=== PATIENT | female | born 1990 | race African-American/Black ===

== ENCOUNTER 2017-02-28 16:22 | Emergency (ER) | payer SELFPAY ==
[~2017-02-28] VITALS: Ht 160 cm; Wt 81.6 kg
[2017-02-28 16:43] VITALS: BP 133/86
[2017-02-28] MEDS ORDERED: AMOX875T PO (16:45)
[2017-02-28] MEDS ORDERED: FLUC150T PO (16:45)
--- NOTE | 2017-02-28 16:45 | PHYS DOC ---
Past Medical History Past Medical History: No Pertinent History Past Surgical History: No Surgical History Alcohol Use: None Drug Use: None Adult General Chief Complaint Chief Complaint: LOWER EXT PAIN HPI HPI Patient is a 26 year old female presents to the emergency department with complaints of a pustular rash on the lower extremities. She states it's been present for one week. She also states that she has itching in her genital area, "in the bikini line". She denies vaginal discharge, pelvic pain. She denies urinary symptoms. She has abdominal pain. Some fever. Review of Systems Review of Systems Constitutional: Denies fever or chills [] Eyes: Denies change in visual acuity, redness, or eye pain [] HENT: Denies nasal congestion or sore throat [] Respiratory: Denies cough or shortness of breath [] Cardiovascular: No additional information not addressed in HPI [] GI: Denies abdominal pain, nausea, vomiting, bloody stools or diarrhea [] : Denies dysuria or hematuria, itching in bikini area[] Musculoskeletal: Denies back pain or joint pain [] Integument: pustular rash Neurologic: Denies headache, focal weakness or sensory changes [] Endocrine: Denies polyuria or polydipsia [] Allergies Allergies Allergies Coded Allergies Type Severity Reaction Last Updated Verified No Known Drug Allergies 05/27/14 No Physical Exam Physical Exam Constitutional: Well developed, well nourished, no acute distress, non-toxic appearance. [] HENT: Normocephalic, atraumatic, bilateral external ears normal, oropharynx moist, no oral exudates, nose normal. [] Eyes: PERRLA, EOMI, conjunctiva normal, no discharge. [] Neck: Normal range of motion, no tenderness, supple, no lymphadenopathy Cardiovascular:Heart rate regular rhythm, no murmur [] Lungs & Thorax: Bilateral breath sounds clear to auscultation [] Abdomen: Bowel sounds normal, soft, no tenderness, no masses, no pulsatile masses. [] Skin: Warm, dry, bilateral lower extremities, scant, diffuse pustular rash. There is no surrounding erythema. No induration. There is nontender. Patient with a tinea in the groin line, underwear line Back: No tenderness, no CVA tenderness. [] Extremities: No tenderness, no cyanosis, no clubbing, ROM intact, no edema. [] EKG EKG [] Radiology/Procedures Radiology/Procedures [] Course & Med Decision Making Course & Med Decision Making Pertinent Labs and Imaging studies reviewed. (See chart for details) [] Dragon Disclaimer Dragon Disclaimer This electronic medical record was generated, in whole or in part, using a voice recognition dictation system. Departure Departure Impression: Primary Impression: Folliculitis Additional Impression: Candidiasis of skin Disposition: HOME, SELF-CARE Condition: STABLE Referrals: NO PCP (PCP) [facility] Patient Instructions: Folliculitis, Yeast Infection of the Skin, [id number] Scripts Fluconazole (DIFLUCAN) 150 Mg Tablet 1 TAB PO DAILY, #5 TAB 1 Refill 1 tablet on days one, 3, 7, 14, 21 Prov: BEAR SANCHEZ APRN 02/28/17 Amoxicillin (AMOXICILLIN) 875 Mg Tablet 1 TAB PO BID, #14 TAB Prov: BEAR SANCHEZ APRN 02/28/17 Problem Qualifiers BEAR SANCHEZ APRN Feb 28, 2017 16:45
== END 2017-02-28 16:56 | disposition home or self-care (01) ==
LOC: ER 16:22
DX: L73.9 Follicular disorder, unspecified (principal); B37.2 Candidiasis of skin and nail; R10.9 Unspecified abdominal pain
CPT/HCPCS: 99283

== ENCOUNTER 2017-07-01 09:14 | Emergency (ER) | payer SELFPAY ==
[~2017-07-01] VITALS: Ht 160 cm; Wt 72.6 kg
[~2017-07-01 09:14] MED LIST: AMOX875T PO; FLUC150T PO
--- NOTE | 2017-07-01 09:36 | EKG ---
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
--- NOTE | 2017-07-01 09:41 | PHYS DOC ---
Past Medical History Past Medical History: No Pertinent History Past Surgical History: No Surgical History Alcohol Use: None Drug Use: None Adult General Chief Complaint Chief Complaint: MULTIPLE COMPLAINTS HPI HPI Patient is a 26 year old female who presents with lower abdominal pain for 2 weeks. Mild increase in urination, no dysuria, no vaginal discharge, no nausea or vomiting. "small period" last month but no period in mar or april. Intermittent R breast pain with movement, no known injury. + constipation, feels like she needs to have BM, no current PCP Review of Systems Review of Systems Constitutional: Denies fever or chills [] Eyes: Denies change in visual acuity, redness, or eye pain [] HENT: Denies nasal congestion or sore throat [] Respiratory: Denies cough or shortness of breath [] Cardiovascular: denies edema GI: Denies nausea, vomiting, bloody stools or diarrhea [] : Denies dysuria or hematuria [] Musculoskeletal: Denies back pain or joint pain [] Integument: Denies rash or skin lesions [] Neurologic: Denies headache, focal weakness or sensory changes [] Allergies Allergies Allergies Coded Allergies Type Severity Reaction Last Updated Verified No Known Drug Allergies 05/27/14 No Physical Exam Physical Exam Constitutional: Well developed, well nourished, no acute distress, non-toxic appearance. [] HENT: Normocephalic, atraumatic, bilateral external ears normal, oropharynx moist, no oral exudates, nose normal. [] Eyes: PERRLA, EOMI, conjunctiva normal, no discharge. [] Neck: Normal range of motion, no tenderness, supple, no stridor. [] Cardiovascular:Heart rate regular with regular rhythm, no murmur [] Lungs & Thorax: Bilateral breath sounds clear to auscultation [] Abdomen: Bowel sounds normal, soft, suprapubic ttp, no adnexal ttp, no guarding , no peritoneal signs. Skin: Warm, dry, no erythema, no rash. [] Back: No tenderness, no CVA tenderness. [] Extremities: No tenderness, no cyanosis, no clubbing, ROM intact, no edema. [] Neurologic: Alert and oriented X 3, normal motor function, normal sensory function, no focal deficits noted. [] Psychologic: Affect normal, judgement normal, mood normal. [] Current Patient Data Vital Signs Vital Signs Date Time Temp Pulse Resp B/P (MAP) Pulse Ox O2 Delivery O2 Flow Rate FiO2 07/01/17 10:34 62 111/69 (83) 98 Room Air 07/01/17 09:45 98.1 20 98.1 Lab Values Laboratory Tests Test 07/01/17 09:30 07/01/17 09:38 07/01/17 09:57 Urine Collection Type Unknown Urine Color Yellow Urine Clarity Clear Urine pH 6.0 Urine Specific [place] 1.020 Urine Protein Negative mg/dL (NEG-TRACE) Urine Glucose (UA) Negative mg/dL (NEG) Urine Ketones (Stick) Negative mg/dL (NEG) Urine Blood Negative (NEG) Urine Nitrite Negative (NEG) Urine Bilirubin Negative (NEG) Urine Urobilinogen Dipstick 0.2 mg/dL (0.2 mg/dL) Urine Leukocyte Esterase Trace (NEG) Urine RBC 0 /HPF (0-2) Urine WBC 1-4 /HPF (0-4) Urine Squamous Epithelial Cells Many /LPF Urine Bacteria Few /HPF (0-FEW) POC Urine HCG, Qualitative Hcg positive (Negative) Maternal Serum HCG Beta Subunit 4024 mIU/mL (0-5) H Microbiology 07/01/17 Wet Prep - Final, Complete EKG EKG [] Radiology/Procedures Radiology/Procedures US: Impression: 1. Intrauterine gestational sac identified without yolk sac or pole could be very early . Close interval follow-up examination and follow-up beta-hCG levels is recommended. [] Course & Med Decision Making Course & Med Decision Making Pertinent Labs and Imaging studies reviewed. (See chart for details) Pt had + UCG, quant in 4000s, US inconclusive if early or not going to develop. Stressed importance of f/u with OB in 2-3 days, referred to Dr. Gerber, pt dc'd with RX for keflex for possible uti. return precautions given. Dragon Disclaimer Dragon Disclaimer This electronic medical record was generated, in whole or in part, using a voice recognition dictation system. Departure Departure Impression: Primary Impression: Urinary tract infection Additional Impression: Disposition: 01 HOME, SELF-CARE Condition: STABLE Referrals: NO PCP (PCP) GUERA GERBER MD Patient Instructions: - Urinary Tract Infection Scripts Cephalexin (KEFLEX) 500 Mg Capsule 1 CAP PO BID, #14 CAP Prov: BIBI WARREN MD 07/01/17 Problem Qualifiers BIBI WARREN MD Jul 01, 2017 09:40
[2017-07-01 09:50] LABS: BILIRUBIN,URINE NEGATIVE (NEG); GLUCOSE,URINE NEGATIVE (NEG); NITRITE,URINE NEGATIVE (NEG); PROTEIN,URINE NEGATIVE (NEG-TRACE); UROBILINOGEN,URINE 0.2 mg/dL (0.2 mg/dL)
[2017-07-01 10:10] LABS: BACTERIA,URINE FEW /HPF (0-FEW); RBC,URINE 0 /HPF (0-2); SQUAMOUS EPITHELIAL CELL,UR MANY /LPF
--- NOTE | 2017-07-01 11:25 | RAD ---
Examination: Obstetric ultrasound first trimester History: History of abdominal pain Comparison: 04/23/2012 Findings: The uterus measures 8.5 x 5.5 x 4.1 cm. The cervical length measures 3.6 cm. The right ovary measures 2.9 x 1.9 x 3.4 cm. Blood flow identified in the right ovary. The left ovary measures 3.3 x 2.8 x1.7 cm. Blood flow identified in the left ovary. An intrauterine gestational sac is identified. A yolk sac and pole are not identified. The gestational sac measures 0.66 cm corresponding to 5 weeks and 3 days with estimated date of delivery by this ultrasound 02/28/2018. Simple appearing free fluid identified in the cul-de-sac. Impression: 1. Intrauterine gestational sac identified without yolk sac or pole could be very early . Close interval follow-up examination and follow-up beta-hCG levels is recommended.
[2017-07-01 11:34] VITALS: BP 111/58
[2017-07-01] MEDS ORDERED: CEPH-264 PO (12:02)
== END 2017-07-01 12:19 | disposition home or self-care (01) ==
LOC: ER 09:14
DX: N39.0 Urinary tract infection, site not specified (principal); Z33.1 Pregnant state, incidental; N64.4 Mastodynia
CPT/HCPCS: 36415; 76801; 76817; 81001; 81025; 84702; 87086; 87491; 87591; 93005; 99285; Q0111

== ENCOUNTER → 2017-08-06 | Outpatient (CLI) | payer OTHER ==
[2017-08-06 13:12] LABS: ADD MAN DIFF? NO
[2017-08-06 13:27] LABS: BASO % 0 % (0-3); EOS # 0.1 x10^3/uL (0.0-0.7); EOS % 1 % (0-3); HEMATOCRIT 32.3 % (36.0-47.0); HEMOGLOBIN 10.8 g/dL (12.0-15.5); LYMPH # 1.3 x10^3/uL (1.0-4.8); LYMPH % 31 % (24-48); MEAN CORPUSCULAR HEMOGLOBIN 28 pg (25-35); MEAN CORPUSCULAR HGB CONC 33 g/dL (31-37); MEAN CORPUSCULAR VOLUME 83 fL (79-100); MONO # 0.3 x10^3/uL (0.0-1.1); MONO % 8 % (0-9); NEUT # 2.5 x10^3uL (1.8-7.7); NEUT % 59 % (31-73); PLATELET COUNT 230 x10^3/uL (140-400); RED BLOOD COUNT 3.87 x10^6/uL (3.50-5.40); WHITE BLOOD COUNT 4.3 x10^3/uL (4.0-11.0)
[2017-08-06 13:50] LABS: BILIRUBIN,URINE NEGATIVE (NEG); CLARITY,URINE CLEAR; COLOR,URINE YELLOW; GLUCOSE,URINE NEGATIVE (NEG); NITRITE,URINE NEGATIVE (NEG); PH,URINE 6.5; PROTEIN,URINE NEGATIVE (NEG-TRACE); UROBILINOGEN,URINE 0.2 mg/dL (0.2 mg/dL)
[2017-08-06 14:29] LABS: RBC,URINE 0 /HPF (0-2)
[2017-08-06 14:30] LABS: BACTERIA,URINE FEW /HPF (0-FEW); SQUAMOUS EPITHELIAL CELL,UR MOD /LPF; WBC,URINE RARE /HPF (0-4)
[2017-08-06 23:11] LABS: HEP B SURFACE AG Negative (Negative); HIV ANTIBODY Non Reactive (Non Reactive)
[2017-08-07 09:20] LABS: RPR Non Reactive (Non Reactive)
[2017-08-08 00:15] LABS: RUBELLA IGG ANTIBODY 2.29 index (Immune >0.99)
== END | disposition home or self-care (01) ==
LOC: US 12:47
DX: O26.841 Uterine size-date discrepancy, first trimester (principal); Z3A.11 11 weeks gestation of pregnancy; R79.89 Other specified abnormal findings of blood chemistry
CPT/HCPCS: 36415; 76801; 81001; 84702; 85025; 86593; 86703; 86762; 86850; 86900; 86901; 87340

== ENCOUNTER → 2017-10-28 | Outpatient (CLI) | payer OTHER | END | disposition home or self-care (01) | LOC: US 09:19 | DX: Z34.92 Encounter for supervision of normal pregnancy, unspecified, second trimester (principal); Z3A.22 22 weeks gestation of pregnancy | CPT/HCPCS: 76805 ==

== ENCOUNTER 2018-01-19 13:51 | Observation (INO) | payer OTHER ==
[2018-01-19] MEDS ORDERED: IV RINGERS,LACTATED 1000ML 1,000 ML IV (14:28)
[2018-01-19] MEDS ORDERED: ACETAMINOPHEN 325 MG TABLET. PO (14:30)
[2018-01-19] MEDS: CYCLOBENZAPRINE 10 MG TABLET. PO (14:54)
== END 2018-01-19 15:04 | disposition home or self-care (01) ==
LOC: 3 SO LND 13:51
DX: O26.893 Other specified pregnancy related conditions, third trimester (principal); R10.2 Pelvic and perineal pain; M25.559 Pain in unspecified hip; M54.9 Dorsalgia, unspecified; Z3A.34 34 weeks gestation of pregnancy
CPT/HCPCS: G0378; G0379

== ENCOUNTER 2018-02-24 18:46 | Inpatient (IN) | payer OTHER ==
[2018-02-24] MEDS ORDERED: ACETAMINOPHEN 325 MG TABLET. PO (19:15)
[2018-02-24] MEDS ORDERED: fentaNYL PF VIAL 100 MCG/2 ML VIAL IV (19:30)
[2018-02-24] MEDS ORDERED: OXYTOCIN 30 UNIT/500 ML PREMIX 500 ML IV (19:30)
[2018-02-24] MEDS ORDERED: BUTORPHANOL 2 MG/ML VIAL. IV (19:30)
[2018-02-24] MEDS ORDERED: LIDOCAINE 1% PF 30 ML VIAL. INJ (19:30)
[2018-02-24] MEDS ORDERED: ONDANSETRON PF 4 MG/2 ML VIAL. IV (19:30)
[2018-02-24] MEDS ORDERED: 0.9 % SODIUM CHLORIDE 10 ML DISP.SYRIN. IV (19:30)
[2018-02-24] MEDS ORDERED: IV RINGERS,LACTATED 1000ML 1,000 ML IV (19:30)
[2018-02-24] MEDS ORDERED: TERBUTALINE 1 MG/ML VIAL. SQ (19:30)
[2018-02-24 19:49] LABS: BILIRUBIN,URINE NEGATIVE (NEG); CLARITY,URINE CLEAR; COLOR,URINE YELLOW; GLUCOSE,URINE NEGATIVE (NEG); NITRITE,URINE NEGATIVE (NEG); PH,URINE 6.5; PROTEIN,URINE NEGATIVE (NEG-TRACE); UROBILINOGEN,URINE 0.2 mg/dL (0.2 mg/dL)
[2018-02-24 19:55] LABS: BACTERIA,URINE MODERATE /HPF (0-FEW); RBC,URINE 0 /HPF (0-2); SQUAMOUS EPITHELIAL CELL,UR FEW /LPF; WBC,URINE OCC /HPF (0-4)
[2018-02-24 19:56] LABS: BARBITURATES NEG (NEG); BENZODIAZEPINES NEG (NEG); CANNABINOIDS NEG (NEG); COCAINE NEG (NEG); METHADONE NEG (NEG); OPIATES NEG (NEG); PHENCYCLIDINE NEG (NEG)
[2018-02-24 19:59] LABS: AMPHETAMINE/METHAMPHETAMINE NEG (NEG); ETHANOL, URINE NEG (NEG)
[2018-02-24 20:10] LABS: ADD MAN DIFF? NO
[2018-02-24 20:13] LABS: BASO % 1 % (0-3); EOS # 0.1 x10^3/uL (0.0-0.7); EOS % 1 % (0-3); HEMATOCRIT 32.5 % (36.0-47.0); LYMPH # 1.6 x10^3/uL (1.0-4.8); LYMPH % 31 % (24-48); MEAN CORPUSCULAR HEMOGLOBIN 29 pg (25-35); MEAN CORPUSCULAR HGB CONC 34 g/dL (31-37); MEAN CORPUSCULAR VOLUME 85 fL (79-100); MONO # 0.6 x10^3/uL (0.0-1.1); MONO % 12 % (0-9); NEUT # 2.8 x10^3uL (1.8-7.7); NEUT % 56 % (31-73); PLATELET COUNT 177 x10^3/uL (140-400); RED BLOOD COUNT 3.84 x10^6/uL (3.50-5.40); RED CELL DISTRIBUTION WIDTH 14.2 % (11.5-14.5)
[2018-02-24 20:31] LABS: ALBUMIN 2.6 g/dL (3.4-5.0); ALBUMIN/GLOBULIN RATIO 0.6 (1.0-1.7); ALK PHOS 108 U/L (46-116); ALT (SGPT) 15 U/L (14-59); ANION GAP 8 (6-14); AST (SGOT) 11 U/L (15-37); BLOOD UREA NITROGEN 10 mg/dL (7-20); BUN/CREATININE RATIO 14 (6-20); CALCIUM 8.7 mg/dL (8.5-10.1); CARBON DIOXIDE 24 mmol/L (21-32); CHLORIDE 104 mmol/L (98-107); CREATININE 0.7 mg/dL (0.6-1.0); DIRECT BILIRUBIN 0.1 mg/dL (0.0-0.2); GFR 120.6; GLUCOSE 91 mg/dL (70-99); LACTATE DEHYDROGENASE 157 U/L (81-234); POTASSIUM 3.7 mmol/L (3.5-5.1); SODIUM 136 mmol/L (136-145); TOTAL BILIRUBIN 0.4 mg/dL (0.2-1.0); URIC ACID 5.7 mg/dL (2.6-6.0)
[2018-02-24] MEDS: ACETAMINOPHEN 500 MG TABLET PO (20:49)
[2018-02-24] MEDS: DINOPROSTONE 10 MG SUPP.VAG VG (20:49)
[2018-02-24] MEDS: IV RINGERS,LACTATED 1000ML 1,000 ML IV (20:49)
[2018-02-24] MEDS ORDERED: OXYTOCIN PREMIX 30 UNIT/500 ML BAG. IV (21:00)
[2018-02-25] MEDS: MAG HYDROX/ALUMINUM HYD/SIMETH 30 ML ORAL.SUSP PO (01:57)
[2018-02-25] MEDS: IV RINGERS,LACTATED 1000ML 1,000 ML IV (04:00)
[2018-02-25] MEDS: BUTORPHANOL 2 MG/ML VIAL. IV ×2 (06:43→08:34)
[2018-02-25] MEDS: OXYTOCIN 30 UNIT/500 ML PREMIX 500 ML IV (07:23)
[2018-02-25] MEDS ORDERED: IV RINGERS,LACTATED 1000ML 1,000 ML IV (10:39)
[2018-02-25] MEDS ORDERED: NALOXONE 0.4 MG/ML VIAL. IV (10:45)
[2018-02-25] MEDS ORDERED: ONDANSETRON PF 4 MG/2 ML VIAL. IV (10:45)
[2018-02-25] MEDS ORDERED: ePHEDrine PF IN SALINE 50 MG/5 ML DISP.SYRIN IV (10:45)
[2018-02-25] MEDS ORDERED: fentaNYL PF VIAL 100 MCG/2 ML VIAL EPI (10:45)
[2018-02-25] MEDS ORDERED: ROPIVacaine 0.2% IN 0.9%NACL PF 40 MG/20 ML DISP.SYRIN. EPI (10:45)
[2018-02-25] MEDS ORDERED: MAG HYDROX/ALUMINUM HYD/SIMETH 30 ML ORAL.SUSP PO (11:15)
[2018-02-25] MEDS ORDERED: PHENYLEPH/MINERAL OIL/PETROLAT RECTAL OINTMENT 28GM TUBE. RC (11:15)
[2018-02-25] MEDS ORDERED: 0.9 % SODIUM CHLORIDE 10 ML DISP.SYRIN. IV (11:15)
[2018-02-25] MEDS ORDERED: IBUPROFEN 800 MG TABLET. PO (11:15)
[2018-02-25] MEDS ORDERED: OXYTOCIN 30 UNIT/500 ML PREMIX 500 ML IV (11:15)
[2018-02-25] MEDS ORDERED: MMR per PROTOCOL. MC (11:15)
[2018-02-25] MEDS ORDERED: ZOLPIDEM 5 MG TABLET. PO (11:15)
[2018-02-25] MEDS ORDERED: ACETAMINOPHEN 325 MG TABLET. PO (11:15)
[2018-02-25] MEDS ORDERED: HYDROCORTISONE 1% TOPICAL OINTMENT 30GM TUBE. TP (11:15)
[2018-02-25] MEDS ORDERED: diphenhydrAMINE HCL 25 MG CAPSULE PO (11:15)
[2018-02-25] MEDS ORDERED: BENZOCAINE 20% TOPICAL AEROSOL SPRAY 57GM CAN. TP (11:15)
[2018-02-25] MEDS: IBUPROFEN 800 MG TABLET. PO ×2 (11:51→20:38)
[2018-02-25 14:33] LABS: TOTAL PROTEIN CREATININE RATIO 115 mg/g creat (0-200); UR CREATININE RD 55.7 mg/dL (Not Estab.); UR PROTEIN RD 6.4 mg/dL (Not Estab.)
[2018-02-25] MEDS: ACETAMINOPHEN 500 MG TABLET PO (23:42)
[2018-02-26] MEDS: SIMETHICONE 80 MG TAB.CHEW PO (04:01)
[2018-02-26] MEDS: IBUPROFEN 800 MG TABLET. PO ×3 (04:01→21:32)
[2018-02-26 05:46] LABS: ADD MAN DIFF? NO
[2018-02-26 05:52] LABS: BASO % 0 % (0-3); EOS % 1 % (0-3); HEMATOCRIT 30.1 % (36.0-47.0); HEMOGLOBIN 10.1 g/dL (12.0-15.5); LYMPH # 1.4 x10^3/uL (1.0-4.8); LYMPH % 22 % (24-48); MEAN CORPUSCULAR HEMOGLOBIN 29 pg (25-35); MEAN CORPUSCULAR HGB CONC 34 g/dL (31-37); MEAN CORPUSCULAR VOLUME 85 fL (79-100); MONO # 0.8 x10^3/uL (0.0-1.1); MONO % 12 % (0-9); NEUT % 64 % (31-73); PLATELET COUNT 171 x10^3/uL (140-400); RED BLOOD COUNT 3.56 x10^6/uL (3.50-5.40); RED CELL DISTRIBUTION WIDTH 14.2 % (11.5-14.5); WHITE BLOOD COUNT 6.3 x10^3/uL (4.0-11.0)
[2018-02-26] MEDS: DOCUSATE SODIUM 100 MG CAPSULE. PO (09:23)
[2018-02-26] MEDS: FERROUS SULFATE 325 MG TABLET. PO (09:23)
[2018-02-26] MEDS: MAG HYDROX/ALUMINUM HYD/SIMETH 30 ML ORAL.SUSP PO (15:13)
[2018-02-26] MEDS: HYDROcodone/APAP 5/325MG 1 TAB TABLET PO ×2 (15:15→21:33)
[2018-02-27] MEDS: IBUPROFEN 800 MG TABLET. PO (06:41)
[2018-02-27] MEDS: MAGNESIUM HYDROXIDE 2,400 MG/30 ML ORAL.SUSP. PO (14:17)
[2018-02-27] MEDS: HYDROcodone/APAP 5/325MG 1 TAB TABLET PO (14:18)
== END 2018-02-27 18:50 | disposition home or self-care (01) | DRG 775 ==
LOC: 3 SO LND 18:46 → 3 NORTH 02-25 17:45
PROC: 10E0XZZ Delivery of Products of Conception, External Approach (ICD-10-PCS; principal; 2018-02-25)
PROC: 3E0P7VZ Introduction of Hormone into Female Reproductive, Via Natural or Artificial Opening (ICD-10-PCS; 2018-02-25)
DX: O62.3 Precipitate labor (principal); Z37.0 Single live birth; Z3A.39 39 weeks gestation of pregnancy
CPT/HCPCS: 36415; 80053; 80076; 80307; 81001; 82570; 83615; 84156; 84550; 85025; 86592; 86850; 86900; 86901; 87086; G0378; J2590; J7120

== ENCOUNTER 2019-01-13 10:06 | Emergency (ER) | payer OTHER ==
[~2019-01-13] VITALS: Ht 160 cm; Wt 90.7 kg
[~2019-01-13 10:06] MED LIST changes: +CEPH-264 PO; +IBUP800T19 PO
[2019-01-13 11:40] VITALS: BP 135/88
[2019-01-13] MEDS ORDERED: LIDOCAINE 1% Multi-Dose 20 ML VIAL. INJ ONE (12:30)
[2019-01-13] MEDS ORDERED: IBUPROFEN 200 MG TABLET. PO ONE (12:30)
[2019-01-13] MEDS ORDERED: HYDROcodone/APAP 5/325MG 1 TAB TABLET PO ONE (13:30)
[2019-01-13] MEDS ORDERED: SULF1TAB24 PO (13:57)
[2019-01-13] MEDS ORDERED: BACI28.43 TP (13:57)
[2019-01-13] MEDS ORDERED: HYDR-3164 PO (13:57)
--- NOTE | 2019-01-13 13:57 | PHYS DOC ---
Past Medical History Past Medical History: No Pertinent History Past Surgical History: No Surgical History Alcohol Use: None Drug Use: None Adult General Chief Complaint Chief Complaint: ABSCESS HPI HPI Patient is a 28 year old [f__sex] who presents with [] Review of Systems Review of Systems Constitutional: Denies fever or chills [] Eyes: Denies change in visual acuity, redness, or eye pain [] HENT: Denies nasal congestion or sore throat [] Respiratory: Denies cough or shortness of breath [] Cardiovascular: No additional information not addressed in HPI [] GI: Denies abdominal pain, nausea, vomiting, bloody stools or diarrhea [] : Denies dysuria or hematuria [] Musculoskeletal: Denies back pain or joint pain [] Integument: Denies rash or skin lesions [] Neurologic: Denies headache, focal weakness or sensory changes [] Endocrine: Denies polyuria or polydipsia [] All other systems were reviewed and found to be within normal limits, except as documented in this note. Current Medications Current Medications Current Medications Medications (Trade) Dose Ordered Sig/Andi Start Time Stop Time Status Last Admin Dose Admin Acetaminophen/ Hydrocodone Bitart (Lortab 5/325) 1 tab 1X ONCE 01/13/19 13:30 01/13/19 13:39 DC 01/13/19 13:42 1 TAB Ibuprofen (Motrin) 600 mg 1X ONCE 01/13/19 12:30 01/13/19 12:31 DC 01/13/19 12:37 600 MG Lidocaine HCl (Lidocaine 1% 20ml Vial) 20 ml 1X ONCE 01/13/19 12:30 01/13/19 12:31 DC 01/13/19 12:43 20 ML Allergies Allergies Allergies Coded Allergies Type Severity Reaction Last Updated Verified No Known Drug Allergies 05/27/14 No Physical Exam Physical Exam Constitutional: Well developed, well nourished, no acute distress, non-toxic appearance. [] HENT: Normocephalic, atraumatic, bilateral external ears normal, oropharynx moist, no oral exudates, nose normal. [] Eyes: PERRLA, EOMI, conjunctiva normal, no discharge. [] Neck: Normal range of motion, no tenderness, supple, no stridor. [] Cardiovascular:Heart rate regular rhythm, no murmur [] Lungs & Thorax: Bilateral breath sounds clear to auscultation [] Abdomen: Bowel sounds normal, soft, no tenderness, no masses, no pulsatile masses. [] Skin: Warm, dry, no erythema, no rash. [] Back: No tenderness, no CVA tenderness. [] Extremities: No tenderness, no cyanosis, no clubbing, ROM intact, no edema. [] Neurologic: Alert and oriented X 3, normal motor function, normal sensory function, no focal deficits noted. [] Psychologic: Affect normal, judgement normal, mood normal. [] Current Patient Data Vital Signs Vital Signs Date Time Temp Pulse Resp B/P (MAP) Pulse Ox O2 Delivery O2 Flow Rate FiO2 01/13/19 13:42 18 97 Room Air 01/13/19 11:40 97.3 79 135/88 (104) 97.3 EKG EKG [] Radiology/Procedures Radiology/Procedures Abscess Incision and Drainage with irrigation by wa: [id number] Location: Anesthesia: Local 1% Lidocaine Technique: Irrigated. Disrupted loculations w/ instrumentation Packing: None Complications: Neurovascularly intact post procedure 48 hour wound check. Scar minimization instructions given. Course & Med Decision Making Course & Med Decision Making Pertinent Labs and Imaging studies reviewed. (See chart for details) [] Dragon Disclaimer Dragon Disclaimer This electronic medical record was generated, in whole or in part, using a voice recognition dictation system. Departure Departure Impression: Primary Impression: Abscess Disposition: 01 HOME, SELF-CARE Condition: STABLE Referrals: NO PCP (PCP) Patient Instructions: Abscess, Incision and Drainage Additional Instructions: Warm compresses to affected area every 3-4 hours for 20-30 minutes at a time. Tylenol and/or ibuprofen as needed for pain as directed on container. You need a wound reevaluation in 24-48 hours for packing removal and recheck of the wound. Scripts Hydrocodone/Apap 5-325 (NORCO 5-325 TABLET) 1 Each Tablet 1 TAB PO PRN Q6HRS PRN for PAIN, #8 TAB 0 Refills No driving or drinking alcohol while taking this medication Prov: ULI HEBERT APRN 01/13/19 Bacitracin (Bacitracin) 28.4 Gm Oint...g. 28.4 GM TP TID, #1 MISC Apply to affected area until wound improves Prov: ULI HEBERT APRN 01/13/19 Sulfamethoxazole/Trimethoprim (BACTRIM DS TABLET) 1 Each Tablet 1 TAB PO BID, #14 TAB 0 Refills Prov: ULI HEBERT APRN 01/13/19 ULI HEBERT APRN Jan 13, 2019 13:57
== END 2019-01-13 14:21 | disposition home or self-care (01) ==
LOC: ER 10:06
DX: L02.413 Cutaneous abscess of right upper limb (principal)
CPT/HCPCS: 10060; 87070; 99283-25; 99284-25

== ENCOUNTER 2019-01-21 19:28 | Emergency (ER) | payer OTHER ==
[~2019-01-21] VITALS: Ht 160 cm; Wt 91.6 kg
[~2019-01-21 19:28] MED LIST changes: +BACI28.43 TP; +HYDR-3164 PO; +SULF1TAB24 PO
[2019-01-21 20:07] LABS: BILIRUBIN,URINE NEGATIVE (NEG); CLARITY,URINE CLOUDY; COLOR,URINE RED; NITRITE,URINE NEGATIVE (NEG); PROTEIN,URINE 100 mg/dL (NEG-TRACE); UROBILINOGEN,URINE 0.2 mg/dL (0.2 mg/dL)
[2019-01-21 20:16] LABS: BACTERIA,URINE FEW /HPF (0-FEW); RBC,URINE TNTC /HPF (0-2); SQUAMOUS EPITHELIAL CELL,UR FEW /LPF
[2019-01-21 20:28] LABS: BASO % 1 % (0-3); EOS # 0.1 x10^3/uL (0.0-0.7); EOS % 2 % (0-3); HEMOGLOBIN 11.8 g/dL (12.0-15.5); LYMPH # 1.8 x10^3/uL (1.0-4.8); LYMPH % 42 % (24-48); MEAN CORPUSCULAR HEMOGLOBIN 28 pg (25-35); MEAN CORPUSCULAR HGB CONC 34 g/dL (31-37); MEAN CORPUSCULAR VOLUME 84 fL (79-100); MONO # 0.4 x10^3/uL (0.0-1.1); MONO % 9 % (0-9); NEUT % 48 % (31-73); PLATELET COUNT 216 x10^3/uL (140-400); RED BLOOD COUNT 4.18 x10^6/uL (3.50-5.40); RED CELL DISTRIBUTION WIDTH 14.2 % (11.5-14.5); WHITE BLOOD COUNT 4.3 x10^3/uL (4.0-11.0)
--- NOTE | 2019-01-21 21:35 | RAD ---
Obstetrical ultrasound less than 14 weeks HISTORY: First trimester bleeding, last menstrual period was November 22, 2018. Positive urine hCG test. Quantitative hCG is pending, is not currently available. TECHNIQUE: Transabdominal transvaginal transducers with grayscale and duplex Doppler sonography were utilized FINDINGS: Transabdominal sonography demonstrates anteverted uterus measuring 10.0 x 5.2 x 6.7 cm. Endometrium thickness is 0.7 cm. No intrauterine gestational sac evident. No uterine mass evident. There is a tiny linear echogenic nonshadowing focus at the right uterine horn this could be dystrophic vascular calcification or a small calcified leiomyoma, secondarily an echogenic contraceptive fallopian tubal occlusive device at the isthmus of the tube at the uterine horn could have a similar appearance. Structure labeled left ovary measures 3.0 x 1.6 x 2.2 cm. Right ovary not visualized transabdominal. Transvaginal imaging demonstrates anteverted uterus. Cervical length 4.2 cm, cervix is normal. Endometrium thickness is 1.0 cm. No intrauterine gestational sac. The right uterine horn echogenic focus cannot be visualized transvaginal. Left ovary measures 1.6 x 3.6 x 2.0 cm with intact blood flow. Right ovary measures 2.1 x 2.8 x 1.8 cm with intact blood flow. Tiny volume of anechoic free fluid at cul-de-sac. IMPRESSION: No intrauterine evident. No adnexal masses evident. Tiny volume of simple fluid in the cul-de-sac is present. In the absence of a qualitative hCG and sonographic absence of a uterine , differential diagnosis includes very early sonographically occult intrauterine , sonographically occult ectopic , or sequela of spontaneous . Clinical and sonographic follow-up is advised to document eventual development of an intrauterine . Electronically signed by: Jr Mayer MD (01/21/2019 9:32 PM) [facility]
[2019-01-21 22:00] VITALS: BP 135/89
--- NOTE | 2019-01-21 22:15 | PHYS DOC ---
Past Medical History Past Medical History: No Pertinent History Past Surgical History: No Surgical History Alcohol Use: None Drug Use: None Adult General Chief Complaint Chief Complaint: FLANK PAIN HPI HPI Patient is a 28 year old f who p/w lower abdo discomfort coming and going as well as some vaginal spotting hcg pos at home yesterday lmp first week of november she thinks. no fever no dysuria not having to change pad yet but was with wiping and leaking out while sitting down sometimes Review of Systems Review of Systems Constitutional: Denies fever or chills [] Eyes: Denies change in visual acuity, redness, or eye pain [] HENT: Denies nasal congestion or sore throat [] Musculoskeletal: Denies back pain or joint pain [] Integument: Denies rash or skin lesions [] Neurologic: Denies headache, focal weakness or sensory changes [] Endocrine: Denies polyuria or polydipsia [] All other systems were reviewed and found to be within normal limits, except as documented in this note. Allergies Allergies Allergies Coded Allergies Type Severity Reaction Last Updated Verified No Known Drug Allergies 05/27/14 No Physical Exam Physical Exam Constitutional: Well developed, well nourished, no acute distress, non-toxic appearance. [] HENT: Normocephalic, atraumatic, bilateral external ears normal, oropharynx moist, no oral exudates, nose normal. [] Eyes: PERRLA, EOMI, conjunctiva normal, no discharge. [] Pulmonary: Normal respiratory effort no increased work of breathing no obvious chest wall trauma Abdomen: Bowel sounds normal, soft, no tenderness, no masses, no pulsatile masses. [] Skin: Warm, dry, no erythema, no rash. [] Back: No tenderness, no CVA tenderness. [] Extremities: No tenderness, no cyanosis, no clubbing, ROM intact, no edema. [] Neurologic: Alert and oriented X 3, normal motor function, normal sensory function, no focal deficits noted. [] Psychologic: Affect normal, judgement normal, mood normal. [] Current Patient Data Vital Signs Vital Signs Date Time Temp Pulse Resp B/P (MAP) Pulse Ox O2 Delivery O2 Flow Rate FiO2 01/21/19 22:00 68 16 135/89 (104) 100 Room Air 01/21/19 19:35 98.5 98.5 Lab Values Laboratory Tests Test 01/21/19 19:35 01/21/19 19:55 01/21/19 20:00 Urine Collection Type Unknown Urine Color Red Urine Clarity Cloudy Urine pH 6.0 Urine Specific [place] 1.020 Urine Protein 100 mg/dL (NEG-TRACE) Urine Glucose (UA) Negative mg/dL (NEG) Urine Ketones (Stick) Trace mg/dL (NEG) Urine Blood Large (NEG) Urine Nitrite Negative (NEG) Urine Bilirubin Negative (NEG) Urine Urobilinogen Dipstick 0.2 mg/dL (0.2 mg/dL) Urine Leukocyte Esterase Moderate (NEG) Urine RBC Tntc /HPF (0-2) Urine WBC 5-10 /HPF (0-4) Urine Squamous Epithelial Cells Few /LPF Urine Bacteria Few /HPF (0-FEW) Urine Mucus Mod /LPF White Blood Count 4.3 x10^3/uL (4.0-11.0) Red Blood Count 4.18 x10^6/uL (3.50-5.40) Hemoglobin 11.8 g/dL (12.0-15.5) L Hematocrit 35.0 % (36.0-47.0) L Mean Corpuscular Volume 84 fL (79-100) Mean Corpuscular Hemoglobin 28 pg (25-35) Mean Corpuscular Hemoglobin Concent 34 g/dL (31-37) Red Cell Distribution Width 14.2 % (11.5-14.5) Platelet Count 216 x10^3/uL (140-400) Neutrophils (%) (Auto) 48 % (31-73) Lymphocytes (%) (Auto) 42 % (24-48) Monocytes (%) (Auto) 9 % (0-9) Eosinophils (%) (Auto) 2 % (0-3) Basophils (%) (Auto) 1 % (0-3) Neutrophils # (Auto) 2.0 x10^3uL (1.8-7.7) Lymphocytes # (Auto) 1.8 x10^3/uL (1.0-4.8) Monocytes # (Auto) 0.4 x10^3/uL (0.0-1.1) Eosinophils # (Auto) 0.1 x10^3/uL (0.0-0.7) Basophils # (Auto) 0.0 x10^3/uL (0.0-0.2) Maternal Serum HCG Beta Subunit 2575 mIU/mL (0-5) H POC Urine HCG, Qualitative Hcg positive (Negative) Laboratory Tests 01/21/19 19:55 EKG EKG [] Radiology/Procedures Radiology/Procedures [] Impressions: IMPRESSION: No intrauterine evident. No adnexal masses evident. Tiny volume of simple fluid in the cul-de-sac is present. In the absence of a qualitative hCG and sonographic absence of a uterine , differential diagnosis includes very early sonographically occult intrauterine , sonographically occult ectopic , or sequela of spontaneous . Clinical and sonographic follow-up is advised to document eventual development of an intrauterine . Electronically signed by: Jr Mayer MD (01/21/2019 9:32 PM) [facility] Course & Med Decision Making Course & Med Decision Making Pertinent Labs and Imaging studies reviewed. (See chart for details) ddx early preg v. threatened sab v. less likely ectopic but not ruled out advised f/u with ob in 3 days for repeat bet and imaging strict bleeding precautions reviewed pt voiced undersatnding hb, vitals stable in ed Dragon Disclaimer Dragon Disclaimer This electronic medical record was generated, in whole or in part, using a voice recognition dictation system. Departure Departure Impression: Primary Impression: First trimester bleeding Disposition: 01 HOME, SELF-CARE Condition: STABLE Referrals: CONSTANTINO BOWERS Jr, MD Patient Instructions: Vaginal Bleeding During , First Trimester Additional Instructions: you need to have repeat hormone level in 3-5 days. return sooner for increase in bleeding, lightheadedness or any other concerns. KERMIT HOGUE MD Jan 21, 2019 22:14
== END 2019-01-21 22:15 | disposition home or self-care (01) ==
LOC: ER 19:28
DX: O46.91 Antepartum hemorrhage, unspecified, first trimester (principal); Z3A.00 Weeks of gestation of pregnancy not specified
CPT/HCPCS: 36415; 76801; 76817; 81001; 81025; 84702; 85025; 86850; 86900; 86901; 87086; 99285-25

== ENCOUNTER 2019-01-26 13:22 | Emergency (ER) | payer OTHER ==
[~2019-01-26] VITALS: Ht 160 cm; Wt 90.7 kg
[2019-01-26 14:04] LABS: BASO % 1 % (0-3); EOS # 0.1 x10^3/uL (0.0-0.7); EOS % 2 % (0-3); HEMATOCRIT 33.4 % (36.0-47.0); HEMOGLOBIN 11.2 g/dL (12.0-15.5); LYMPH # 1.7 x10^3/uL (1.0-4.8); LYMPH % 49 % (24-48); MEAN CORPUSCULAR HEMOGLOBIN 28 pg (25-35); MEAN CORPUSCULAR HGB CONC 34 g/dL (31-37); MEAN CORPUSCULAR VOLUME 84 fL (79-100); MONO # 0.3 x10^3/uL (0.0-1.1); MONO % 8 % (0-9); NEUT # 1.4 x10^3uL (1.8-7.7); NEUT % 40 % (31-73); PLATELET COUNT 208 x10^3/uL (140-400); RED BLOOD COUNT 3.96 x10^6/uL (3.50-5.40); RED CELL DISTRIBUTION WIDTH 13.8 % (11.5-14.5); WHITE BLOOD COUNT 3.6 x10^3/uL (4.0-11.0)
[2019-01-26 14:21] LABS: CALCIUM 8.6 mg/dL (8.5-10.1); CREATININE 0.9 mg/dL (0.6-1.0); GFR 89.6
[2019-01-26 14:26] LABS: ALBUMIN 3.6 g/dL (3.4-5.0); ALBUMIN/GLOBULIN RATIO 0.9 (1.0-1.7); TOTAL BILIRUBIN 0.2 mg/dL (0.2-1.0); TOTAL PROTEIN 7.7 g/dL (6.4-8.2)
--- NOTE | 2019-01-26 14:26 | PHYS DOC ---
Past Medical History Past Medical History: No Pertinent History Past Surgical History: No Surgical History Additional Information: quit a few days ago Alcohol Use: None Drug Use: None Adult General Chief Complaint Chief Complaint: ABDOMINAL PAIN IN [facility] HPI Patient is a 28 year old female presents to the ED complaining of vaginal bleeding while over the last week. Patient states that she is approximately 8 weeks . Patient's last menstrual period was at the end of October beginning of November. Patient is . Patient was seen in the ED on January 21 and no intrauterine was seen. Patient's beta hCG was 2575. Patient was supposed to follow-up but hasn't. Patient states that she continued to have bleeding. States she has been passing clots over the last couple of days. No bleeding today. Patient states that she was told not to take anything for pain so she has not. Describes pain to her lower abdomen as cramping. Rates her pain as 3 out of 10. Denies fever, dysuria, hematuria, vaginal discharge, diarrhea, chest pain, shortness of breath or lower leg swelling. Review of Systems Review of Systems Constitutional: Denies fever or chills [] Eyes: Denies change in visual acuity, redness, or eye pain [] HENT: Denies nasal congestion or sore throat [] Respiratory: Denies cough or shortness of breath [] Cardiovascular: No additional information not addressed in HPI [] GI: Complains of abdominal cramping. Denies nausea, vomiting, bloody stools or diarrhea [] : Complains of vaginal bleeding. Denies dysuria or hematuria [] Musculoskeletal: Denies back pain or joint pain [] Integument: Denies rash or skin lesions [] Neurologic: Denies headache, focal weakness or sensory changes [] All other systems were reviewed and found to be within normal limits, except as documented in this note. Allergies Allergies Allergies Coded Allergies Type Severity Reaction Last Updated Verified No Known Drug Allergies 05/27/14 No Physical Exam Physical Exam Constitutional: Well developed, well nourished, no acute distress, non-toxic appearance. [] HENT: Normocephalic, atraumatic Neck: Normal range of motion, no tenderness, supple, no stridor. [] Cardiovascular:Heart rate regular rhythm, no murmur [] Lungs & Thorax: Bilateral breath sounds clear to auscultation [] Abdomen: Bowel sounds normal, soft, no tenderness, no masses, no pulsatile masses. [] : Refused Skin: Warm, dry, no erythema, no rash. [] Back: No tenderness, no CVA tenderness. [] Extremities: No tenderness, no cyanosis, no clubbing, ROM intact, no edema. [] Neurologic: Alert and oriented X 3, normal motor function, normal sensory function, no focal deficits noted. [] Psychologic: Affect normal, judgement normal, mood normal. [] Current Patient Data Vital Signs Vital Signs Date Time Temp Pulse Resp B/P (MAP) Pulse Ox O2 Delivery O2 Flow Rate FiO2 01/26/19 15:03 124/77 (93) 01/26/19 13:29 98.2 67 16 99 Room Air 98.2 Lab Values Laboratory Tests Test 01/26/19 13:30 01/26/19 13:57 Urine Collection Type Unknown Urine Color Yellow Urine Clarity Clear Urine pH 5.5 Urine Specific [place] 1.025 Urine Protein Negative mg/dL (NEG-TRACE) Urine Glucose (UA) Negative mg/dL (NEG) Urine Ketones (Stick) Negative mg/dL (NEG) Urine Blood Large (NEG) Urine Nitrite Negative (NEG) Urine Bilirubin Negative (NEG) Urine Urobilinogen Dipstick 0.2 mg/dL (0.2 mg/dL) Urine Leukocyte Esterase Small (NEG) Urine RBC 0 /HPF (0-2) Urine WBC 1-4 /HPF (0-4) Urine Squamous Epithelial Cells Many /LPF Urine Bacteria Few /HPF (0-FEW) White Blood Count 3.6 x10^3/uL (4.0-11.0) L Red Blood Count 3.96 x10^6/uL (3.50-5.40) Hemoglobin 11.2 g/dL (12.0-15.5) L Hematocrit 33.4 % (36.0-47.0) L Mean Corpuscular Volume 84 fL (79-100) Mean Corpuscular Hemoglobin 28 pg (25-35) Mean Corpuscular Hemoglobin Concent 34 g/dL (31-37) Red Cell Distribution Width 13.8 % (11.5-14.5) Platelet Count 208 x10^3/uL (140-400) Neutrophils (%) (Auto) 40 % (31-73) Lymphocytes (%) (Auto) 49 % (24-48) H Monocytes (%) (Auto) 8 % (0-9) Eosinophils (%) (Auto) 2 % (0-3) Basophils (%) (Auto) 1 % (0-3) Neutrophils # (Auto) 1.4 x10^3uL (1.8-7.7) L Lymphocytes # (Auto) 1.7 x10^3/uL (1.0-4.8) Monocytes # (Auto) 0.3 x10^3/uL (0.0-1.1) Eosinophils # (Auto) 0.1 x10^3/uL (0.0-0.7) Basophils # (Auto) 0.0 x10^3/uL (0.0-0.2) Maternal Serum HCG Beta Subunit 106 mIU/mL (0-5) H Sodium Level 141 mmol/L (136-145) Potassium Level 4.0 mmol/L (3.5-5.1) Chloride Level 108 mmol/L (98-107) H Carbon Dioxide Level 26 mmol/L (21-32) Anion Gap 7 (6-14) Blood Urea Nitrogen 9 mg/dL (7-20) Creatinine 0.9 mg/dL (0.6-1.0) Estimated GFR (Cockcroft-Gault) 89.6 BUN/Creatinine Ratio 10 (6-20) Glucose Level 96 mg/dL (70-99) Calcium Level 8.6 mg/dL (8.5-10.1) Total Bilirubin 0.2 mg/dL (0.2-1.0) Aspartate Amino Transferase (AST) 11 U/L (15-37) L Alanine Aminotransferase (ALT) 13 U/L (14-59) L Alkaline Phosphatase 57 U/L (46-116) Total Protein 7.7 g/dL (6.4-8.2) Albumin 3.6 g/dL (3.4-5.0) Albumin/Globulin Ratio 0.9 (1.0-1.7) L Laboratory Tests 01/26/19 13:57 Laboratory Tests 01/26/19 13:57 EKG EKG [] Radiology/Procedures Radiology/Procedures []PROCEDURE: OB <14 WKS W/TV Obstetric pelvic ultrasound 01/26/2019 INDICATION: , vaginal bleeding. COMPARISON: Obstetric ultrasound January 21, 2019 TECHNIQUE: Sonographic evaluation of the pelvis was performed utilizing transabdominal and transvaginal imaging. Grayscale, color Doppler and spectral waveform analysis was utilized. FINDINGS: The uterus measures 8.0 x 6.0 x 5.0 cm. No free fluid is identified within the cul-de-sac. Possible gestational sac is identified within the endometrium measuring 0.75 cm compatible with a gestational age of 5 weeks 4 days definite yolk sac is not visualized. pole and cardiac motion are not visualized. Right ovary measures 3.9 x 1.7 x 2.2 cm. Left ovary measures 2.5 x 1.9 x 1.9 cm. Arterial and venous waveform identified bilaterally at the time of imaging. Urinary bladder is within normal limits given degree of distention. IMPRESSION: 1. There is a possible gestational sac identified within the endometrium with angular margins. No definite yolk sac or pole visualized. Sonographic EDC is 09/24/2019 with estimated gestational age of 5 weeks 4 days. Consideration may be given for early versus ectopic versus blighted ovum. Correlate with beta-hCG values. Short-term follow-up beta hCG and pelvic ultrasound may be of benefit. 2. Small volume free fluid within the pelvis appear simple. Course & Med Decision Making Course & Med Decision Making Pertinent Labs and Imaging studies reviewed. (See chart for details) []Discussed lab and imaging findings with patient. Patient refused exam. No active bleeding today. Patient states she had been passing clots. Patient's hCG beta decrease from 2500 to 106. Patient well-appearing in the ED. Abdomen is soft nontender nondistended. No peritoneal signs. Tolerating by mouth. Discussed symptomatic treatment and [id number] medications. Discussed follow-up with LPN RN [facility]OS[facility] this week. Discussed reasons to return to the ED. Patient understan ds and agrees with plan. Dragon Disclaimer Dragon Disclaimer This electronic medical record was generated, in whole or in part, using a voice recognition dictation system. Departure Departure Impression: Primary Impression: Miscarriage Disposition: 01 HOME, SELF-CARE Condition: STABLE Referrals: NO PCP (PCP) CONSTANTINO BOWERS Jr, MD Patient Instructions: Miscarriage CASPER ALVAREZ Jan 26, 2019 14:26
[2019-01-26 14:31] LABS: BILIRUBIN,URINE NEGATIVE (NEG); CLARITY,URINE CLEAR; COLOR,URINE YELLOW; NITRITE,URINE NEGATIVE (NEG); PH,URINE 5.5; PROTEIN,URINE NEGATIVE (NEG-TRACE); UROBILINOGEN,URINE 0.2 mg/dL (0.2 mg/dL)
[2019-01-26 14:41] LABS: BACTERIA,URINE FEW /HPF (0-FEW); RBC,URINE 0 /HPF (0-2); SQUAMOUS EPITHELIAL CELL,UR MANY /LPF
[2019-01-26 15:03] VITALS: BP 124/77
--- NOTE | 2019-01-26 15:16 | RAD ---
Obstetric pelvic ultrasound 01/26/2019 INDICATION: , vaginal bleeding. COMPARISON: Obstetric ultrasound January 21, 2019 TECHNIQUE: Sonographic evaluation of the pelvis was performed utilizing transabdominal and transvaginal imaging. Grayscale, color Doppler and spectral waveform analysis was utilized. FINDINGS: The uterus measures 8.0 x 6.0 x 5.0 cm. No free fluid is identified within the cul-de-sac. Possible gestational sac is identified within the endometrium measuring 0.75 cm compatible with a gestational age of 5 weeks 4 days definite yolk sac is not visualized. pole and cardiac motion are not visualized. Right ovary measures 3.9 x 1.7 x 2.2 cm. Left ovary measures 2.5 x 1.9 x 1.9 cm. Arterial and venous waveform identified bilaterally at the time of imaging. Urinary bladder is within normal limits given degree of distention. IMPRESSION: 1. There is a possible gestational sac identified within the endometrium with angular margins. No definite yolk sac or pole visualized. Sonographic EDC is 09/24/2019 with estimated gestational age of 5 weeks 4 days. Consideration may be given for early versus ectopic versus blighted ovum. Correlate with beta-hCG values. Short-term follow-up beta hCG and pelvic ultrasound may be of benefit. 2. Small volume free fluid within the pelvis appear simple. Electronically signed by: Onelia Rhodes MD (01/26/2019 3:13 PM) [id number]
== END 2019-01-26 15:30 | disposition home or self-care (01) ==
LOC: ER 13:22
DX: O03.9 Complete or unspecified spontaneous abortion without complication (principal); Z87.891 Personal history of nicotine dependence; Z3A.01 Less than 8 weeks gestation of pregnancy
CPT/HCPCS: 36415; 76801; 76817; 80053; 81001; 84702; 85025; 99285-25

== ENCOUNTER 2019-08-12 15:42 | Emergency (ER) | payer OTHER ==
[2019-08-12 16:25] VITALS: BP 117/65
--- NOTE | 2019-08-12 16:48 | PHYS DOC ---
Past Medical History Past Medical History: No Pertinent History Past Surgical History: No Surgical History Alcohol Use: None Drug Use: None Adult General Chief Complaint Chief Complaint: ABDOMINAL PAIN HPI HPI Patient is a 28 year old female who presents with abdominal pain has been ongoing for several days and getting worse. The patient denies any nausea, vomiting, vaginal bleeding. The patient states that she is 19 weeks . The patient has not received any [facility]ER care during this . [id number]. Complete ROS were reviewed and found to be within normal limits, except as documented in the HPI Allergies Allergies Allergies Coded Allergies Type Severity Reaction Last Updated Verified No Known Drug Allergies 05/27/14 No Physical Exam Physical Exam Constitutional: Well developed, well nourished, no acute distress, non-toxic appearance. [] HENT: Normocephalic, atraumatic, bilateral external ears normal, oropharynx moist, no oral exudates, nose normal. [] Eyes: PERRLA, EOMI, conjunctiva normal, no discharge. [] Neck: Normal range of motion, no tenderness, supple, no stridor. [] Cardiovascular:Heart rate regular rhythm, no murmur [] Lungs & Thorax: Bilateral breath sounds clear to auscultation [] Abdomen: Bowel sounds normal, soft, mild lower abdominal tenderness, no masses, no pulsatile masses. [] Skin: Warm, dry, no erythema, no rash. [] Neurologic: Alert and oriented X 3, normal motor function, normal sensory function, no focal deficits noted. [] Psychologic: Affect normal, judgement normal, mood normal. [] Current Patient Data Vital Signs Vital Signs Date Time Temp Pulse Resp B/P (MAP) Pulse Ox O2 Delivery O2 Flow Rate FiO2 08/12/19 16:25 98.4 89 20 117/65 (82) 100 Room Air 98.4 Lab Values Laboratory Tests Test 08/12/19 14:40 08/12/19 16:05 White Blood Count 4.6 x10^3/uL (4.0-11.0) Red Blood Count 3.33 x10^6/uL (3.50-5.40) L Hemoglobin 9.5 g/dL (12.0-15.5) L Hematocrit 28.1 % (36.0-47.0) L Mean Corpuscular Volume 84 fL (79-100) Mean Corpuscular Hemoglobin 29 pg (25-35) Mean Corpuscular Hemoglobin Concent 34 g/dL (31-37) Red Cell Distribution Width 14.1 % (11.5-14.5) Platelet Count 226 x10^3/uL (140-400) Neutrophils (%) (Auto) 59 % (31-73) Lymphocytes (%) (Auto) 31 % (24-48) Monocytes (%) (Auto) 8 % (0-9) Eosinophils (%) (Auto) 2 % (0-3) Basophils (%) (Auto) 1 % (0-3) Neutrophils # (Auto) 2.7 x10^3/uL (1.8-7.7) Lymphocytes # (Auto) 1.4 x10^3/uL (1.0-4.8) Monocytes # (Auto) 0.4 x10^3/uL (0.0-1.1) Eosinophils # (Auto) 0.1 x10^3/uL (0.0-0.7) Basophils # (Auto) 0.1 x10^3/uL (0.0-0.2) Maternal Serum HCG Beta Subunit 77043 mIU/mL (0-5) H Sodium Level 138 mmol/L (136-145) Potassium Level 3.5 mmol/L (3.5-5.1) Chloride Level 105 mmol/L (98-107) Carbon Dioxide Level 25 mmol/L (21-32) Anion Gap 8 (6-14) Blood Urea Nitrogen 3 mg/dL (7-20) L Creatinine 0.6 mg/dL (0.6-1.0) Estimated GFR (Cockcroft-Gault) 143.0 BUN/Creatinine Ratio 5 (6-20) L Glucose Level 83 mg/dL (70-99) Calcium Level 8.6 mg/dL (8.5-10.1) Total Bilirubin 0.2 mg/dL (0.2-1.0) Aspartate Amino Transferase (AST) 8 U/L (15-37) L Alanine Aminotransferase (ALT) 9 U/L (14-59) L Alkaline Phosphatase 39 U/L (46-116) L Total Protein 7.1 g/dL (6.4-8.2) Albumin 3.2 g/dL (3.4-5.0) L Albumin/Globulin Ratio 0.8 (1.0-1.7) L Urine Collection Type Unknown Urine Color Yellow Urine Clarity Clear Urine pH 7.5 Urine Specific [place] 1.010 Urine Protein Negative mg/dL (NEG-TRACE) Urine Glucose (UA) Negative mg/dL (NEG) Urine Ketones (Stick) Negative mg/dL (NEG) Urine Blood Negative (NEG) Urine Nitrite Negative (NEG) Urine Bilirubin Negative (NEG) Urine Urobilinogen Dipstick 0.2 mg/dL (0.2 mg/dL) Urine Leukocyte Esterase Moderate (NEG) Urine RBC 0 /HPF (0-2) Urine WBC 11-20 /HPF (0-4) Urine Squamous Epithelial Cells Many /LPF Urine Bacteria Few /HPF (0-FEW) Urine Mucus Slight /LPF Urine Yeast Present /HPF Laboratory Tests 08/12/19 14:40 Laboratory Tests 08/12/19 14:40 EKG EKG [] Radiology/Procedures Radiology/Procedures [][facility] [address] [place], [place] [id number] IMAGING REPORT Signed PATIENT: JAM DAVIS S ACCOUNT: [id number] : 1990 LOCATION: ER AGE: 28 SEX: F EXAM STATUS: REG ER ORD. PHYSICIAN: YOSEPH CANAS APRN REASON: abd pain in PROCEDURE: OB LIMITED EXAM: Obstetrics sonogram. HISTORY: Pain. TECHNIQUE: Sonographic imaging of a gravid uterus was performed. COMPARISON: None. FINDINGS: There is a single intrauterine fetus in cephalic presentation with a normal heart rate of 145 bpm. The cervix is closed and measures 4.9 cm in length. There is a grade 1 posterior placenta without evidence of placenta previa or abruption. The biparietal diameter is 4.63 cm, corresponding with 20 weeks and 0 days. The head circumference is 16.47 cm, corresponding with 19 weeks and 1 day. The abdominal sequential images 13.62 cm, corresponding with 19 weeks and 0 days. The femoral length is 3.11 cm, corresponding with 19 weeks and 5 days. The estimated gestational age patient combined ultrasound measurements is 19 weeks and 3 days and the estimated due date is 01/03/2020. The estimated weight is 287 g. IMPRESSION: 1. Single intrauterine fetus in cephalic presentation with normal heart rate and gestational age based on ultrasound measurements of 19 weeks and 3 days. 2. No acute finding. Note is made that a formal anatomy was not performed at the time of this exam. A formal anatomy survey can be performed at 18-20 weeks gestation, if not artery performed at an outside facility. Electronically signed by: Lorraine Carmona MD (08/12/2019 5:00 PM) [place] [id number] DICTATED and SIGNED BY: LORRAINE CARMONA MD DATE: 08/12/19 1700 Course & Med Decision Making Course & Med Decision Making Pertinent Labs and Imaging studies reviewed. (See chart for details) Will get ultrasound, labs, and give supportive care. Ultrasound is unremarkable for acute changes. Labs are unremarkable. UA shows leukocytes. Will treat with Keflex. Dragon Disclaimer Dragon Disclaimer This electronic medical record was generated, in whole or in part, using a voice recognition dictation system. Departure Departure Impression: Primary Impression: Urinary tract infection Additional Impression: Abdominal pain affecting Disposition: HOME, SELF-CARE Condition: STABLE Referrals: NO PCP (PCP) YOSEPH MCCORMACK MD Patient Instructions: Abdominal Pain During , - Urinary Tract Infection Additional Instructions: Thank you for visiting [facility]. We appreciate you trusting us with your care. If any additional problems come up don't hesitate to return to visit us. Please follow up with your primary care provider so they can plan additional care if needed and know about the problem that you had. If symptoms worsen come back to the Emergency Department. Any concerning symptoms that start such as chest pain, shortness of air, weakness or numbness on one side of the body, running high fevers or any other concerning symptoms return to the ER. You have been prescribed an antibiotic today to help fight your infection. Please take all of the antibiotic as directed. If after 48 hours the infection is not improving, please return for more care. If the infection worsens, return to ER for additional care. Scripts Cephalexin (KEFLEX) 500 Mg Capsule 1 CAP PO BID for 7 Days, #14 CAP 0 Refills Prov: YOSEPH CANAS APRN 08/12/19 Problem Qualifiers Primary Impression: Urinary tract infection Urinary tract infection type: acute cystitis Hematuria presence: without hematuria Qualified Codes: N30.00 - Acute cystitis without hematuria YOSEPH CANAS APRN Aug 12, 2019 16:48
[2019-08-12 16:56] LABS: BASO # 0.1 x10^3/uL (0.0-0.2); BASO % 1 % (0-3); EOS # 0.1 x10^3/uL (0.0-0.7); EOS % 2 % (0-3); HEMATOCRIT 28.1 % (36.0-47.0); HEMOGLOBIN 9.5 g/dL (12.0-15.5); LYMPH # 1.4 x10^3/uL (1.0-4.8); LYMPH % 31 % (24-48); MEAN CORPUSCULAR HEMOGLOBIN 29 pg (25-35); MEAN CORPUSCULAR HGB CONC 34 g/dL (31-37); MEAN CORPUSCULAR VOLUME 84 fL (79-100); MONO # 0.4 x10^3/uL (0.0-1.1); MONO % 8 % (0-9); NEUT # 2.7 x10^3/uL (1.8-7.7); NEUT % 59 % (31-73); PLATELET COUNT 226 x10^3/uL (140-400); RED BLOOD COUNT 3.33 x10^6/uL (3.50-5.40); RED CELL DISTRIBUTION WIDTH 14.1 % (11.5-14.5); WHITE BLOOD COUNT 4.6 x10^3/uL (4.0-11.0)
[2019-08-12 16:56] LABS: BILIRUBIN,URINE NEGATIVE (NEG); CLARITY,URINE CLEAR; COLOR,URINE YELLOW; NITRITE,URINE NEGATIVE (NEG); PH,URINE 7.5; PROTEIN,URINE NEGATIVE (NEG-TRACE); UROBILINOGEN,URINE 0.2 mg/dL (0.2 mg/dL)
--- NOTE | 2019-08-12 17:03 | RAD ---
EXAM: Obstetrics sonogram. HISTORY: Pain. TECHNIQUE: Sonographic imaging of a gravid uterus was performed. COMPARISON: None. FINDINGS: There is a single intrauterine fetus in cephalic presentation with a normal heart rate of 145 bpm. The cervix is closed and measures 4.9 cm in length. There is a grade 1 posterior placenta without evidence of placenta previa or abruption. The biparietal diameter is 4.63 cm, corresponding with 20 weeks and 0 days. The head circumference is 16.47 cm, corresponding with 19 weeks and 1 day. The abdominal sequential images 13.62 cm, corresponding with 19 weeks and 0 days. The femoral length is 3.11 cm, corresponding with 19 weeks and 5 days. The estimated gestational age patient combined ultrasound measurements is 19 weeks and 3 days and the estimated due date is 01/03/2020. The estimated weight is 287 g. IMPRESSION: 1. Single intrauterine fetus in cephalic presentation with normal heart rate and gestational age based on ultrasound measurements of 19 weeks and 3 days. 2. No acute finding. Note is made that a formal anatomy was not performed at the time of this exam. A formal anatomy survey can be performed at 18-20 weeks gestation, if not artery performed at an outside facility. Electronically signed by: Cathy Koo MD (08/12/2019 5:00 PM) [place] [id number]
[2019-08-12 17:06] LABS: SQUAMOUS EPITHELIAL CELL,UR MANY /LPF
[2019-08-12 17:07] LABS: BACTERIA,URINE FEW /HPF (0-FEW); RBC,URINE 0 /HPF (0-2); YEAST,URINE PRESENT /HPF
[2019-08-12 17:13] LABS: CALCIUM 8.6 mg/dL (8.5-10.1); CREATININE 0.6 mg/dL (0.6-1.0); POTASSIUM 3.5 mmol/L (3.5-5.1)
[2019-08-12 17:18] LABS: ALBUMIN 3.2 g/dL (3.4-5.0); ALBUMIN/GLOBULIN RATIO 0.8 (1.0-1.7); TOTAL BILIRUBIN 0.2 mg/dL (0.2-1.0); TOTAL PROTEIN 7.1 g/dL (6.4-8.2)
[2019-08-12] MEDS ORDERED: CEPH-264 PO (17:53)
== END 2019-08-12 17:35 | disposition home or self-care (01) ==
LOC: ER 15:42
DX: O23.12 Infections of bladder in pregnancy, second trimester (principal); N30.00 Acute cystitis without hematuria; Z3A.19 19 weeks gestation of pregnancy
CPT/HCPCS: 36415; 76815; 80053; 81001; 84702; 85025; 87086; 99285

== ENCOUNTER → 2019-08-24 | Outpatient (CLI) | payer OTHER ==
[2019-08-12 16:25] VITALS: BP 117/65
[2019-08-24 13:53] LABS: HEMATOCRIT 27.4 % (36.0-47.0); HEMOGLOBIN 9.2 g/dL (12.0-15.5); RED BLOOD COUNT 3.24 x10^6/uL (3.50-5.40); RED CELL DISTRIBUTION WIDTH 13.8 % (11.5-14.5); WHITE BLOOD COUNT 3.8 x10^3/uL (4.0-11.0)
[2019-08-25 16:09] LABS: RUBELLA IGG ANTIBODY 1.99 index (Immune >0.99)
== END | disposition home or self-care (01) ==
LOC: LAB 12:54
PROVIDERS: ATTEND Obstetrics & Gynecology
DX: Z34.90 Encounter for supervision of normal pregnancy, unspecified, unspecified trimester (principal)
CPT/HCPCS: 36415; 85027; 86592; 86703; 86762; 86787; 86803; 86850; 86900; 86901; 87340

== ENCOUNTER → 2019-08-27 | Outpatient (CLI) | payer OTHER ==
[2019-08-12 16:25] VITALS: BP 117/65
--- NOTE | 2019-08-27 09:08 | RAD ---
EXAM: OBSTETRIC ULTRASOUND. HISTORY: anatomy survey, supervision of normal . COMPARISON: None. FINDINGS: Sonographic evaluation of the uterus, fetus and maternal pelvis was performed. There is a single fetus in vertex presentation. heart rate is 149 bpm. Estimated gestational age based on measurements is 20 weeks 5 days. Head circumference, biparietal diameter, abdominal circumference and femur length are commensurate. Estimated weight is 367 g The placenta is posterior and fundal. There is no evidence of placenta previa. Amniotic fluid volume appears normal with amniotic fluid index 13.1 cm. The cervix appears long and closed. There is no hydrocephalus. The posterior fossa appears normal. The cava septum pellucidum appears normal. Nose/lip morphology appears normal. Images of the extremities reveal no abnormality. The heart is four-chamber, though not well demonstrated on static images. Images of the kidneys reveal no hydronephrosis. The stomach and bladder are visualized. The cord is three-vessel. The cord insertion appears normal. Images of the spine reveal no clear defects. The nasal bone is visualized. The maternal adnexa are obscured by positioning currently. IMPRESSION: 1. Single fetus in vertex presentation. heart rate 149 bpm. Estimated gestational age based on measurements 20 weeks 5 days. Electronically signed by: Janu Garcia MD (08/27/2019 9:05 AM) [facility]
== END | disposition home or self-care (01) ==
LOC: US 06:52
PROVIDERS: ATTEND Obstetrics & Gynecology
DX: Z34.92 Encounter for supervision of normal pregnancy, unspecified, second trimester (principal); Z3A.20 20 weeks gestation of pregnancy
CPT/HCPCS: 76805

== ENCOUNTER → 2019-09-14 | Outpatient (CLI) | payer OTHER | END | disposition home or self-care (01) | LOC: LAB 11:21 | PROVIDERS: ATTEND Obstetrics & Gynecology | DX: Z34.92 Encounter for supervision of normal pregnancy, unspecified, second trimester (principal); Z3A.23 23 weeks gestation of pregnancy | CPT/HCPCS: 36415; 82950 ==

== ENCOUNTER 2019-12-26 16:29 | Observation (INO) | payer OTHER ==
[2019-12-26] MEDS ORDERED: IV RINGERS,LACTATED 1000ML 1,000 ML IV PRN (17:30)
[2019-12-26 17:31] LABS: BILIRUBIN,URINE NEGATIVE (NEG); CLARITY,URINE CLEAR; NITRITE,URINE NEGATIVE (NEG); PROTEIN,URINE NEGATIVE (NEG-TRACE)
[2019-12-26 17:35] LABS: COLOR,URINE DK YELLOW
[2019-12-26 17:38] LABS: BACTERIA,URINE MODERATE /HPF (0-FEW); RBC,URINE 0 /HPF (0-2); SQUAMOUS EPITHELIAL CELL,UR MANY /LPF
== END 2019-12-26 18:39 | disposition home or self-care (01) ==
LOC: 3 SO LND 16:29
PROVIDERS: ADMIT Obstetrics & Gynecology; ATTEND Obstetrics & Gynecology
DX: O62.9 Abnormality of forces of labor, unspecified (principal); Z3A.35 35 weeks gestation of pregnancy; Z79.899 Other long term (current) drug therapy
CPT/HCPCS: 81001; 87086; G0378; G0379

== ENCOUNTER 2019-12-28 04:59 | Inpatient (IN) | payer OTHER ==
[~2019-12-28] VITALS: Ht 160 cm; Wt 96.8 kg
[2019-12-28] MEDS ORDERED: BUTORPHANOL 2 MG/ML VIAL. IVP PRN ×2 (05:15)
[2019-12-28] MEDS ORDERED: 0.9 % SODIUM CHLORIDE 10 ML DISP.SYRIN. IV PRN ×2 (05:15→15:30)
[2019-12-28] MEDS ORDERED: LIDOCAINE 1% PF 30 ML VIAL. INJ PRN (05:15)
[2019-12-28] MEDS ORDERED: CITRIC ACID/SODIUM CITRATE 30 ML SOLUTION. PO PRN (05:15)
[2019-12-28] MEDS ORDERED: MAG HYDROX/ALUMINUM HYD/SIMETH 30 ML ORAL.SUSP PO PRN ×2 (05:15→15:30)
[2019-12-28] MEDS ORDERED: ACETAMINOPHEN 325 MG TABLET. PO PRN ×2 (05:15→15:30)
[2019-12-28] MEDS ORDERED: fentaNYL PF VIAL 100 MCG/2 ML VIAL IVP PRN (05:15)
[2019-12-28] MEDS ORDERED: OXYTOCIN 30 UNIT/500 ML PREMIX 500 ML IV PRN ×3 (05:15→15:30)
[2019-12-28] MEDS ORDERED: TERBUTALINE 1 MG/ML VIAL. SQ PRN (05:15)
[2019-12-28] MEDS ORDERED: ONDANSETRON PF 4 MG/2 ML VIAL. IVP PRN (05:15)
[2019-12-28 05:34] LABS: BILIRUBIN,URINE NEGATIVE (NEG); CLARITY,URINE CLEAR; COLOR,URINE YELLOW; NITRITE,URINE NEGATIVE (NEG); PROTEIN,URINE NEGATIVE (NEG-TRACE); UROBILINOGEN,URINE 0.2 mg/dL (0.2 mg/dL)
[2019-12-28 05:54] LABS: SQUAMOUS EPITHELIAL CELL,UR MANY /LPF
[2019-12-28] MEDS: IV RINGERS,LACTATED 1000ML 1,000 ML IV SCH ×2 (05:56→11:31)
[2019-12-28 05:58] LABS: RBC,URINE OCC /HPF (0-2)
[2019-12-28 05:59] LABS: BACTERIA,URINE FEW /HPF (0-FEW); YEAST,URINE PRESENT /HPF
[2019-12-28 06:18] LABS: BASO % 1 % (0-3); EOS # 0.1 x10^3/uL (0.0-0.7); EOS % 1 % (0-3); HEMATOCRIT 31.1 % (36.0-47.0); HEMOGLOBIN 10.6 g/dL (12.0-15.5); LYMPH # 1.5 x10^3/uL (1.0-4.8); LYMPH % 31 % (24-48); MEAN CORPUSCULAR HEMOGLOBIN 29 pg (25-35); MEAN CORPUSCULAR HGB CONC 34 g/dL (31-37); MEAN CORPUSCULAR VOLUME 85 fL (79-100); MONO # 0.5 x10^3/uL (0.0-1.1); MONO % 9 % (0-9); NEUT # 2.8 x10^3/uL (1.8-7.7); NEUT % 57 % (31-73); PLATELET COUNT 207 x10^3/uL (140-400); RED BLOOD COUNT 3.68 x10^6/uL (3.50-5.40); RED CELL DISTRIBUTION WIDTH 14.2 % (11.5-14.5); WHITE BLOOD COUNT 4.8 x10^3/uL (4.0-11.0)
[2019-12-28] MEDS ORDERED: FLUCONAZOLE 100 MG TABLET. PO ONE (07:00)
--- NOTE | 2019-12-28 08:00 | PDOC1 ---
[employer] H&P Date of Admission: Date of Admission: Dec 28, 2019 at 04:59 History of Present Illness: EDC: 01/03/20 LMP: 03/29/20 HPI: The pt is a 29y @ 39.1 by L=19 presents for scheduled indxn. The pt has had a relatively uncomplicated to this point. She had difficulty attending the last wk of appts due to transportation issues. At her last appt she was having a few ctxs and was found to be 1/25/-3 (12/14/19). She came in over the weekend and made no cervical change. On presentation the pt was found to be 1-2 cm dilated. The pt reported that she had a h/o syphilis. This was inconsistent with her labs and pt realized that it was another STI. PMH: Denies PSH: Denies Meds: PNV All: NKDA OBHx: TSVD x 2, SAB SH: no tob, no EtOH FH: DM Medications: Meds: Current Medications Medications (Trade) Dose Ordered Sig/Andi Route PRN Reason Start Time Stop Time Status Last Admin Dose Admin Ringer's Solution 1,000 ml @ 125 mls/hr Q8H IV 12/28/19 05:02 12/28/19 05:56 Oxytocin/Sodium Chloride 500 ml @ 0 mls/hr CONT PRN IV SEE I/O RECORD 12/28/19 05:15 12/28/19 05:57 Allergies: Coded Allergies: No Known Drug Allergies (Unverified , 05/27/14) Physical Exam: Vital Signs: FHT: 120s +acels/no decels/mLTV [place]: 10-15 min SVE: 1-2/60/-3 PE: GENERAL: No apparent distress. Alert and oriented. HEENT: Head normocephalic, atraumatic. NECK: Supple LUNGS: Clear to auscultation. HEART: RRR, S1, S2 present, pulses intact ABDOMEN: Soft, positive bowel sounds. EXTREMITIES: No cyanosis or edema. NEUROLOGIC: Normal speech, normal tone PSYCHIATRIC: Normal affect, normal mood. SKIN: No ulceration. Labs: Laboratory Tests Test 12/28/19 05:20 12/28/19 05:51 Urine Collection Type Unknown Urine Color Yellow Urine Clarity Clear Urine pH 6.0 (<5.0-8.0) Urine Specific Calcium 1.015 (1.000-1.030) Urine Protein Negative mg/dL (NEG-TRACE) Urine Glucose (UA) Negative mg/dL (NEG) Urine Ketones (Stick) Negative mg/dL (NEG) Urine Blood Negative (NEG) Urine Nitrite Negative (NEG) Urine Bilirubin Negative (NEG) Urine Urobilinogen Dipstick 0.2 mg/dL (0.2 mg/dL) Urine Leukocyte Esterase Small (NEG) Urine RBC Occ /HPF (0-2) Urine WBC 5-10 /HPF (0-4) Urine Squamous Epithelial Cells Many /LPF Urine Bacteria Few /HPF (0-FEW) Urine Mucus Slight /LPF Urine Yeast Present /HPF White Blood Count 4.8 x10^3/uL (4.0-11.0) Red Blood Count 3.68 x10^6/uL (3.50-5.40) Hemoglobin 10.6 g/dL (12.0-15.5) L Hematocrit 31.1 % (36.0-47.0) L Mean Corpuscular Volume 85 fL (79-100) Mean Corpuscular Hemoglobin 29 pg (25-35) Mean Corpuscular Hemoglobin Concent 34 g/dL (31-37) Red Cell Distribution Width 14.2 % (11.5-14.5) Platelet Count 207 x10^3/uL (140-400) Neutrophils (%) (Auto) 57 % (31-73) Lymphocytes (%) (Auto) 31 % (24-48) Monocytes (%) (Auto) 9 % (0-9) Eosinophils (%) (Auto) 1 % (0-3) Basophils (%) (Auto) 1 % (0-3) Neutrophils # (Auto) 2.8 x10^3/uL (1.8-7.7) Lymphocytes # (Auto) 1.5 x10^3/uL (1.0-4.8) Monocytes # (Auto) 0.5 x10^3/uL (0.0-1.1) Eosinophils # (Auto) 0.1 x10^3/uL (0.0-0.7) Basophils # (Auto) 0.0 x10^3/uL (0.0-0.2) Laboratory Tests 12/28/19 05:51 Laboratory Tests 12/28/19 05:51 Assessment & Plan: A/P 29y @ 39.1 by L=19 1.) Indxn on 6U of Pit 2.) Sickle cell trait 3.) Nora NI 4.) Anemia - on Fe daily 5.) Fetus cat I FHT, vtx 6.) TDAP given 10/12/19 7.) GBS neg 8.) Girl: YOSEPH Panda MD Dec 28, 2019 08:00
--- NOTE | 2019-12-28 15:28 | PDOC ---
VAGINAL DELIVERY DATE DATE: 12/28/19 TIME: 15:28 TIME Patient delivered a viable female over intact perineum at 1509. Wt 5lb 14oz. Apgars 8/9. Placenta delivered spontaneously, intact with 3VC. No lacerations noted. Good hemostasis noted. 20U of Pitocin infused with IVF. EBL 200cc. WEIGHT Weight [ ] YOSEPH MCCORMACK MD Dec 28, 2019 15:28
[2019-12-28] MEDS ORDERED: HYDROCORTISONE 1% TOPICAL OINTMENT 30GM TUBE. TP PRN (15:30)
[2019-12-28] MEDS ORDERED: oxyCODONE/APAP 5/325 1 TAB TABLET PO PRN (15:30)
[2019-12-28] MEDS ORDERED: diphenhydrAMINE HCL 25 MG CAPSULE PO PRN (15:30)
[2019-12-28] MEDS ORDERED: SIMETHICONE 80 MG TAB.CHEW PO PRN (15:30)
[2019-12-28] MEDS ORDERED: MAGNESIUM HYDROXIDE 2,400 MG/30 ML ORAL.SUSP. PO PRN (15:30)
[2019-12-28] MEDS ORDERED: BENZOCAINE 20% TOPICAL AEROSOL SPRAY 57GM CAN. TP PRN (15:30)
[2019-12-28] MEDS ORDERED: MMR per PROTOCOL. MC PRN (15:30)
[2019-12-28] MEDS ORDERED: ZOLPIDEM 5 MG TABLET. PO PRN (15:30)
[2019-12-28] MEDS ORDERED: TDaP (Adacel) per PROTOCOL. MC PRN (15:30)
[2019-12-28] MEDS ORDERED: PHENYLEPH/MINERAL OIL/PETROLAT RECTAL OINTMENT TUBE. RC PRN (15:30)
[2019-12-28] MEDS: IBUPROFEN 400 MG TABLET. PO PRN (15:43)
[2019-12-28 17:50] VITALS: BP 110/80
[2019-12-28 18:59] VITALS: BP 125/77
[2019-12-28 23:05] VITALS: BP 123/71
[2019-12-29 02:13] VITALS: BP 134/92
[2019-12-29 06:23] VITALS: BP 114/69
[2019-12-29 07:21] LABS: HEMATOCRIT 31.6 % (36.0-47.0); HEMOGLOBIN 10.5 g/dL (12.0-15.5)
[2019-12-29] MEDS: FERROUS SULFATE 325 MG TABLET. PO SCH ×2 (08:00→17:00)
--- NOTE | 2019-12-29 08:44 | PDOC ---
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 Christina PO. Voiding. Minimal lochia Objective: Vital Signs: Vital Signs Date Time Temp Pulse Resp B/P (MAP) Pulse Ox O2 Delivery O2 Flow Rate FiO2 12/28/19 14:43 Room Air 12/28/19 17:50 98.2 71 20 110/80 (90) 99 98.2 Vital Signs Date Time Temp Pulse Resp B/P (MAP) Pulse Ox O2 Delivery O2 Flow Rate FiO2 12/29/19 08:21 Room Air 12/29/19 06:23 98.1 79 18 114/69 (84) 99 98.1 Labs: Laboratory Tests Test 12/29/19 07:00 Hemoglobin 10.5 g/dL (12.0-15.5) L Hematocrit 31.6 % (36.0-47.0) L Mean Corpuscular Hemoglobin Concent 33 g/dL (31-37) Laboratory Tests 12/29/19 07:00 Laboratory Tests 12/29/19 07:00 Physical Exam: GENERAL: No apparent distress. Alert and oriented. HEENT: Head normocephalic, atraumatic. NECK: Supple LUNGS: Clear to auscultation. HEART: RRR, S1, S2 present, pulses intact ABDOMEN: Soft, positive bowel sounds. EXTREMITIES: No cyanosis or edema. NEUROLOGIC: Normal speech, normal tone PSYCHIATRIC: Normal affect, normal mood. SKIN: No ulceration. FFNT below umb no C/C/E Assessment & Plan: A/P 29y PPD #1 s/p 1.) PP - doing well 2.) Sickle cell trait 3.) Nora NI 4.) Anemia - Hgb 10.6 -> 10.5 5.) TDAP given 10/12/19 6.) Girl: YOSEPH Panda MD Dec 29, 2019 08:44
[2019-12-29] MEDS: IBUPROFEN 400 MG TABLET. PO PRN ×2 (09:00→17:02)
[2019-12-29] MEDS: DOCUSATE SODIUM 100 MG CAPSULE. PO PRN ×2 (09:00→17:02)
[2019-12-29] MEDS ORDERED: PRENATAL MULTIVITAMIN TABLET. PO SCH (10:00)
[2019-12-29 11:20] VITALS: BP 112/65
[2019-12-29 17:20] VITALS: BP 120/65
[2019-12-29 20:55] VITALS: BP 135/85
[2019-12-30 05:20] VITALS: BP 129/97
[2019-12-30] MEDS: IBUPROFEN 400 MG TABLET. PO PRN ×2 (05:25→18:03)
[2019-12-30] MEDS: FERROUS SULFATE 325 MG TABLET. PO SCH ×2 (08:00→17:00)
[2019-12-30] MEDS ORDERED: DOCU-109 PO (09:02)
[2019-12-30] MEDS ORDERED: IBUP-1060 PO (09:02)
--- NOTE | 2019-12-30 09:04 | PDOC ---
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 Christina PO. Voiding. Minimal lochia. Objective: Vital Signs: Vital Signs Date Time Temp Pulse Resp B/P (MAP) Pulse Ox O2 Delivery O2 Flow Rate FiO2 12/29/19 08:21 Room Air 12/29/19 11:20 98.2 64 16 112/65 (81) 98 98.2 Vital Signs Date Time Temp Pulse Resp B/P (MAP) Pulse Ox O2 Delivery O2 Flow Rate FiO2 12/30/19 05:20 98.1 65 20 129/97 (108) 97 Room Air 98.1 Physical Exam: GENERAL: No apparent distress. Alert and oriented. HEENT: Head normocephalic, atraumatic. NECK: Supple LUNGS: Clear to auscultation. HEART: RRR, S1, S2 present, pulses intact ABDOMEN: Soft, positive bowel sounds. EXTREMITIES: No cyanosis or edema. NEUROLOGIC: Normal speech, normal tone PSYCHIATRIC: Normal affect, normal mood. SKIN: No ulceration. FFNT below umb no C/C/E Assessment & Plan: A/P 29y PPD #2 s/p 1.) PP - doing well 2.) Sickle cell trait 3.) Nora NI 4.) Anemia - Hgb 10.6 -> 10.5 5.) TDAP given 10/12/19 6.) Girl: Eunice 7.) D/c home YOSEPH MCCORMACK MD Dec 30, 2019 09:04
--- NOTE | 2019-12-30 09:15 | DS ---
DATE OF DISCHARGE: 12/30/2019 ADMISSION DIAGNOSES: 1. Intrauterine at 39 weeks and 1 day by LMP equal to 19-week ultrasound. 2. Induction of labor. 3. Sickle cell trait. 4. Varicella nonimmune. 5. Anemia. 6. GBS negative. DISCHARGE DIAGNOSES: 1. Intrauterine at 39 weeks and 1 day by LMP equal to 19-week ultrasound. 2. Induction of labor. 3. Sickle cell trait. 4. Varicella nonimmune. 5. Anemia. 6. GBS negative. PROCEDURE: Spontaneous vaginal delivery. BRIEF HOSPITAL COURSE: The patient is a 29-year-old 4, para 2-0-1-2 who presented to Labor and Delivery at 39 weeks and 1 day by LMP equal to 19-week ultrasound for scheduled induction. The patient had a relatively uncomplicated . On presentation to Labor and Delivery, the patient was found to be dilated by 1 cm, which was very similar to what she was found in the office a couple of weeks prior. The patient was started on Pitocin. When the patient's contractions became regular, her water was broke. The patient ultimately delivered later that afternoon. By day #2, the patient was meeting all discharge criteria and desired discharge home. Of note, the patient's hemoglobin on admission was found to be 10.6 and had dropped to 10.5 after delivery. DISCHARGE INSTRUCTIONS: The patient was told not to lift anything greater than 20 pounds, have pelvic rest for 6 weeks. CALL IF: The patient was to call if she had fevers, chills, nausea, vomiting, abdominal pain or any additional questions or concerns. FOLLOWUP APPOINTMENT: The patient is to follow up on 02/07 at 11:00 a.m. for a appointment. DISCHARGE MEDICATIONS: The patient was given a prescription for Motrin 800 mg 30 pills and Colace 100 mg 30 pills. YOSEPH MCCORMACK MD DR: ANGIE/isamar JOB#: [id number] / [id number] QUEENIE
[2019-12-30] MEDS: DOCUSATE SODIUM 100 MG CAPSULE. PO PRN ×2 (09:38→18:03)
[2019-12-30 12:00] VITALS: BP 139/87
[2019-12-30 18:15] VITALS: BP 121/70
--- NOTE | 2019-12-30 18:30 | NUR ---
Discharge and follow up instructions reviewed with pt along with the boarder policy. Pt's is in phototherapy and will therefore be a boarder. Pt denied any questions or complaints at time of discharge to boarder status,
== END 2019-12-30 18:30 | disposition home or self-care (01) | DRG 807 ==
LOC: 3 SO LND 04:59 → 3 NORTH 17:45
PROVIDERS: ADMIT Obstetrics & Gynecology; ATTEND Obstetrics & Gynecology
PROC: 10E0XZZ Delivery of Products of Conception, External Approach (ICD-10-PCS; principal; 2019-12-28)
DX: O99.02 Anemia complicating childbirth (principal); Z37.0 Single live birth; D57.3 Sickle-cell trait; Z3A.39 39 weeks gestation of pregnancy; Z83.3 Family history of diabetes mellitus
CPT/HCPCS: 36415; 81001; 85014; 85018; 85025; 86592; 86850; 86900; 86901; 87086; J0595; J2590; J3010; J7120; G0378; U0003-CS

== ENCOUNTER → 2021-12-01 | Outpatient (CLI) | payer OTHER ==
[~2021-12-01] MED LIST changes: +DOCU-109 PO; +IBUP-1060 PO
[2021-12-01 11:27] LABS: HEMATOCRIT 28.7 % (36.0-47.0); HEMOGLOBIN 9.5 g/dL (12.0-15.5); RED BLOOD COUNT 3.39 x10^6/uL (3.50-5.40); WHITE BLOOD COUNT 4.6 x10^3/uL (4.0-11.0)
--- NOTE | 2021-12-01 14:36 | RAD ---
OB ultrasound greater than 14 weeks HISTORY: survey Sonographic examination of was performed and multiple static images were obtained. FINDINGS: There is a single live intrauterine . The heartbeat is confirmed at 145 bpm. The cord insertion stomach bladder kidneys and spine appear normal. The ventricles and posterior hubert a appear normal. The maternal cervix appears normal measures 3.8 cm in length. There is a fundal anterior posterior wall placenta. There is a breech position. The maternal cervix measures 3.8 cm in length. Measurements are as follows: BPD 4.3 cm 19 weeks 0 days Head circumference 17.1 cm 19 weeks 5 days Abdominal circumference 14 cm 19 week 6 days Femur length 3.2 cm 19 weeks 6 days The LMP of July 15, 2021 corresponds with a 19 week 6 day gestational age. Assessment of weight is 11 ounces +/- 2 ounces. IMPRESSION: 1. Single live intrauterine at 19 weeks 6 days gestational age by LMP has appropriate size by ultrasound ultrasound. 2. No abnormality identified. Electronically signed by: Vidal Calvo III, MD (12/01/2021 2:34 PM) [facility]
[2021-12-02 20:08] LABS: RUBELLA IGG ANTIBODY 2.31 index (Immune >0.99)
== END ==
LOC: US 10:20
PROVIDERS: ATTEND Registered Nurse
DX: O32.1XX0 Maternal care for breech presentation, not applicable or unspecified (principal); Z3A.19 19 weeks gestation of pregnancy
CPT/HCPCS: 36415; 76805; 85027; 85660; 86592; 86703; 86762; 86787; 86803; 86850; 86900; 86901; 87340